=== PATIENT | male | born 1955 | race Caucasian/White ===

== ENCOUNTER → 2021-10-20 | Outpatient (CLI) | payer MEDICARE ==
[2021-10-20 09:35] LABS: Basophils # (A) 0.1 k/uL (0-0.2); Basophils % (A) 1 %; Eosinophils # (A) 0.2 k/uL (0-0.7); Eosinophils % (A) 3 %; HCT 42.6 % (39.0-53.0); HGB 14.7 gm/dL (13.0-17.5); Lymphocytes % (A) 30 %; MCHC 34.6 g/dL (31.0-37.0); MCV 101.3 fL (80.0-100.0); Macrocytosis Slight; Mean Platelet Volume 7.1; Monocytes # (A) 0.5 k/uL (0-1.0); Monocytes % (A) 7 %; Neutrophils # (A) 3.7 k/uL (1.3-7.7); Neutrophils % (A) 57 %; Platelet Count 188 k/uL (150-450); RBC 4.21 m/uL (4.30-5.90); RDW 13.5 % (11.5-15.5); WBC 6.4 k/uL (3.8-10.6)
[2021-10-20 09:45] LABS: ALT 26 U/L (4-49); African American GFR (CKD) 84 (>60 ml/min/1.73 sqM); Albumin 4.9 g/dL (3.5-5.0); Albumin/Globulin Ratio 1.4; Anion Gap 10 mmol/L; Blood Urea Nitrogen 16 mg/dL (9-20); Calcium 9.9 mg/dL (8.4-10.2); Carbon Dioxide 27 mmol/L (22-30); Chloride 102 mmol/L (98-107); Globulin 3.5 g/dL; Glucose 97 mg/dL (74-99); Non-African American GFR(CKD) 72 (>60 ml/min/1.73 sqM); Sodium 139 mmol/L (137-145); Total Bilirubin 1.1 mg/dL (0.2-1.3); Total Protein 8.4 g/dL (6.3-8.2)
[2021-10-20 09:47] LABS: AST 39 U/L (17-59); Alkaline Phosphatase 40 U/L (38-126); Potassium 5.2 mmol/L (3.5-5.1)
--- NOTE | 2021-10-20 13:35 | NM ---
EXAMINATION TYPE: NM bone scan whole body DATE OF EXAM: 10/20/2021 COMPARISON: NONE HISTORY: Prostate cancer Delayed whole-body scanning was performed following the injection of 24.1 mCi Tc 99m MDP. Images wer e acquired 3 hours post injection. FINDINGS: Suspicious focal uptake to suggest metastatic disease is not identified within the visualized axial o r appendicular skeleton. There is some mild diffuse uptake in the lower cervical spine which appears suggestive for degenerati ve change. IMPRESSION: 1. Mild uptake in the lower cervical spine appears more suggestive for degenerative change. 2. No suspicious uptake to suggest metastatic disease.
[2021-10-20 17:30] LABS: % Iron Saturation 32.82 (15.00-50.00); Chol/HDL Ratio 3.93 Ratio; Iron 142 ug/dL (65-175); LDL Cholesterol,Calculated 152.2 mg/dL (0.0-131.0); Total Iron Binding Capacity 433 ug/dL (228-460)
--- NOTE | 2021-10-23 08:54 | MR ---
EXAMINATION TYPE: MR pelvis wo/w con DATE OF EXAM: 10/20/2021 COMPARISON: Same day whole body bone scan. IMAGE QUALITY: Good. INDICATION: HX OF PROSTATE CA - PROSTATE WAS REMOVED - INCREASE IN PSA PSA: ng/ml TECHNIQUE: Examination was performed using a 3T MRI without an endorectal coil. Multiparametric imaging was perf ormed with T2 mutliplanar sequences, axial diffusion weighted imaging and dynamic contrast enhanced i maging, utilizing 10ML mL intravenous Gadavist gadolinium contrast. FINDINGS: Exam is suboptimal as patient motion artifact degradation is present. Prostate is surgically absent. Asymmetric 2.0 x 1.5 cm x 1.2 cm cystic structure left pelvis axial im age 29 and coronal image 12 could reflect portion of retained seminal vesicle. No additional suspicio us recurrent masses or adenopathy identified. Small fat-containing inguinal hernias bilaterally. Bladder poorly distended with mild wall thickening and trabeculation. No suspicious bowel dilatation. No concerning focal pelvic fluid collection. Visualized osseous structures show no definitive suspic ious focal osseous lesion. Abnormal lymph nodes: no Bone metastases in inferior pelvis: no IMPRESSION: Abnormal 2.0 cm structure left superior prostate bed has appearance of a portion of the r emnant seminal vesicle but recurrent localize neoplasm needs to be considered given history of rising PSA. Correlate clinically and with surgical operative note and with prior outside imaging if availab le. I'm told current PSA is 0.30 making local recurrent neoplasm almost certainly not present.
== END | disposition home or self-care (01) ==
LOC: RADMRIMAIN 08:40
PROVIDERS: ATTEND Radiology Radiation Oncology
DX: C61 Malignant neoplasm of prostate (principal)
CPT/HCPCS: 84439; 84153; 84481; 80053; 80061; 82607; 83540; 83550; 84443; 85025; 84403; 82306; 72197; 78306; 36415; A9503; A9585

== ENCOUNTER → 2022-08-21 | Outpatient (CLI) | payer MEDICARE ==
[2022-08-21 14:35] LABS: Basophils # (A) 0.05 X 10*3/uL (0.00-0.10); Basophils % (A) 1.2 %; Eosinophils # (A) 0.22 X 10*3/uL (0.04-0.35); Eosinophils % (A) 5.2 %; HCT 41.5 % (39.6-50.0); HGB 14.2 g/dL (13.0-17.0); Immature Grans, Automated 0.2 %; Lymphocytes # (A) 0.94 X 10*3/uL (0.90-5.00); Lymphocytes % (A) 22.1 %; MCH 34.4 pg (27.0-32.0); MCHC 34.2 g/dL (32.0-37.0); MCV 100.5 fL (80.0-97.0); Mean Platelet Volume 9.2 fL (9.5-12.2); Monocytes # (A) 0.48 X 10*3/uL (0.20-1.00); Monocytes % (A) 11.3 %; NRBC Per 100 WBC 0 /100 WBCS (0.0-0.0); Neutrophils # (A) 2.56 X 10*3/uL (1.80-7.70); Platelet Count 197 X 10*3/uL (140-440); RBC 4.13 X 10*6/uL (4.40-5.60); RDW 13.3 % (11.5-14.5); WBC 4.26 X 10*3/uL (4.50-10.00)
[2022-08-21 16:25] LABS: % Iron Saturation 28.92 (15.00-50.00); ALT 26 U/L (10-49); AST 21 U/L (14-35); African American GFR (CKD) 78.1 (60.0-200.0); Albumin 4.5 g/dL (3.8-4.9); Albumin/Globulin Ratio 1.81 (1.60-3.17); Alkaline Phosphatase 33 U/L (41-126); Blood Urea Nitrogen 13.1 mg/dL (9.0-27.0); Calcium 9.8 mg/dL (8.7-10.3); Carbon Dioxide 26.5 mmol/L (20.0-27.5); Chloride 99 mmol/L (96-109); Chol/HDL Ratio 3.87 Ratio; Globulin 2.5 g/dL (1.6-3.3); Glucose 89 mg/dL (70-110); Iron 115 ug/dL (65-175); LDL Cholesterol,Calculated 137.3 mg/dL (0.0-131.0); Non-African American GFR(CKD) 67.4 (60.0-200.0); Potassium 5.1 mmol/L (3.5-5.5); Sodium 137 mmol/L (135-145); Total Iron Binding Capacity 398 ug/dL (228-460)
[2022-08-21 16:48] LABS: Prostate Specific Antigen <0.01 ng/mL (0.00-4.50)
== END | disposition home or self-care (01) ==
LOC: LABWHC1 09:55
PROVIDERS: ATTEND Radiology Radiation Oncology
DX: C61 Malignant neoplasm of prostate (principal); E03.2 Hypothyroidism due to medicaments and other exogenous substances; E55.9 Vitamin D deficiency, unspecified; E78.2 Mixed hyperlipidemia; D63.0 Anemia in neoplastic disease; R53.82 Chronic fatigue, unspecified; E11.22 Type 2 diabetes mellitus with diabetic chronic kidney disease; N18.9 Chronic kidney disease, unspecified; M13.80 Other specified arthritis, unspecified site
CPT/HCPCS: 36415; 80053; 80061; 82306; 82607; 83540; 83550; 84153; 84403; 84439; 84443; 84481; 85025

== ENCOUNTER → 2023-03-19 | Outpatient (CLI) | payer MEDICARE | END | disposition home or self-care (01) | LOC: LABWHC1 10:42 | PROVIDERS: ATTEND Surgery | DX: C61 Malignant neoplasm of prostate (principal) | CPT/HCPCS: 36415; 84153 ==

== ENCOUNTER → 2023-08-12 | Outpatient (CLI) | payer MEDICARE | END | disposition home or self-care (01) | LOC: LABWHC1 13:10 | PROVIDERS: ATTEND Radiology Radiation Oncology | DX: Z53.9 Procedure and treatment not carried out, unspecified reason (principal) ==

== ENCOUNTER → 2023-08-13 | Outpatient (CLI) | payer MEDICARE ==
[2023-08-13 18:12] LABS: Basophils # (A) 0.06 X 10*3/uL (0.00-0.10); Basophils % (A) 1.2 %; HCT 38.8 % (39.6-50.0); HGB 12.9 g/dL (13.0-17.0); Lymphocytes # (A) 1.25 X 10*3/uL (0.90-5.00); MCH 33.9 pg (27.0-32.0); MCHC 33.2 g/dL (32.0-37.0); MCV 102.1 FL (80.0-97.0); Mean Platelet Volume 9.6 FL (9.5-12.2); Monocytes # (A) 0.48 X 10*3/uL (0.20-1.00); Monocytes % (A) 9.6 %; NRBC Per 100 WBC 0 X 10*3/uL (0.00-0.01); Neutrophils # (A) 2.99 X 10*3/uL (1.80-7.70); Neutrophils % (A) 59.8 %; Platelet Count 218 X 10*3/uL (140-440); RDW 13.1 % (11.5-14.5)
[2023-08-13 18:49] LABS: % Iron Saturation 36.34 (15.00-50.00); ALT 23 U/L (10-49); AST 20 U/L (14-35); Albumin 4.5 g/dL (3.8-4.9); Albumin/Globulin Ratio 1.73 Ratio (1.60-3.17); Alkaline Phosphatase 42 U/L (41-126); BUN/Creat Ratio 11.55 Ratio (12.00-20.00); Blood Urea Nitrogen 12.7 mg/dL (9.0-27.0); Carbon Dioxide 26.8 mmol/L (21.6-31.8); Chloride 102 mmol/L (96-109); Chol/HDL Ratio 2.33 Ratio; Globulin 2.6 g/dL (1.6-3.3); Glucose 96 mg/dL (70-110); Iron 121 UG/DL (65-175); Potassium 5.5 mmol/L (3.5-5.5); Sodium 138 mmol/L (135-145); T4, Free (Free Thyroxine) 1.26 ng/dL (0.80-1.80); Total Bilirubin 0.3 mg/dL (0.3-1.2); Total Iron Binding Capacity 333 UG/DL (228-460); Total Protein 7.1 g/dL (6.2-8.2); VLDL Calculation 17.38 mg/dL (5.00-40.00)
[2023-08-13 19:31] LABS: Prostate Specific Antigen <0.01 ng/mL (0.000-6.500)
== END | disposition home or self-care (01) ==
LOC: LABWHC1 09:30
PROVIDERS: ATTEND Radiology Radiation Oncology
DX: C61 Malignant neoplasm of prostate (principal); E11.22 Type 2 diabetes mellitus with diabetic chronic kidney disease; N18.9 Chronic kidney disease, unspecified; E03.2 Hypothyroidism due to medicaments and other exogenous substances; E55.9 Vitamin D deficiency, unspecified; E78.2 Mixed hyperlipidemia; M19.90 Unspecified osteoarthritis, unspecified site; D63.0 Anemia in neoplastic disease; R53.82 Chronic fatigue, unspecified
CPT/HCPCS: 36415; 80053; 80061; 82306; 82607; 83540; 83550; 84153; 84403; 84439; 84443; 84481; 85025

== ENCOUNTER → 2024-08-25 | Outpatient (CLI) | payer MEDICARE ==
[2024-08-25 14:53] LABS: Basophils # (A) 0.03 X 10*3/uL (0.00-0.10); Basophils % (A) 0.6 %; Eosinophils # (A) 0.16 X 10*3/uL (0.04-0.35); Eosinophils % (A) 3.2 %; HGB 13.1 g/dL (13.0-17.0); Lymphocytes # (A) 1.25 X 10*3/uL (0.90-5.00); Lymphocytes % (A) 25.3 %; MCH 33.8 pg (27.0-32.0); MCHC 33.6 g/dL (32.0-37.0); MCV 100.5 FL (80.0-97.0); Mean Platelet Volume 9.6 FL (9.5-12.2); Monocytes # (A) 0.47 X 10*3/uL (0.20-1.00); Monocytes % (A) 9.5 %; NRBC Per 100 WBC 0 X 10*3/uL (0.00-0.01); Neutrophils # (A) 3.01 X 10*3/uL (1.80-7.70); Platelet Count 204 X 10*3/uL (140-440); RBC 3.88 X 10*6/uL (4.40-5.60); RDW 12.9 % (11.5-14.5); WBC 4.94 X 10*3/uL (4.50-10.00)
[2024-08-25 15:35] LABS: % Iron Saturation 30.25 (15.00-50.00); ALT 27 U/L (10-49); AST 25 U/L (14-35); Albumin 4.7 g/dL (3.8-4.9); Albumin/Globulin Ratio 1.74 Ratio (1.60-3.17); Alkaline Phosphatase 37 U/L (41-126); BUN/Creat Ratio 12.38 Ratio (12.00-20.00); Blood Urea Nitrogen 16.1 mg/dL (9.0-27.0); Calcium 10.4 mg/dL (8.7-10.3); Carbon Dioxide 26.8 mmol/L (21.6-31.8); Chloride 99 mmol/L (96-109); Chol/HDL Ratio 2.61 Ratio; Globulin 2.7 g/dL (1.6-3.3); Glucose 96 mg/dL (70-110); Iron 108 UG/DL (65-175); LDL Cholesterol,Calculated 84.3 mg/dL (0.0-131.0); Potassium 4.9 mmol/L (3.5-5.5); Sodium 137 mmol/L (135-145); Total Bilirubin 0.6 mg/dL (0.3-1.2); Total Iron Binding Capacity 357 UG/DL (228-460); Total Protein 7.4 g/dL (6.2-8.2); VLDL Calculation 17.54 mg/dL (5.00-40.00)
[2024-08-25 15:50] LABS: Prostate Specific Antigen <0.01 ng/mL (0.000-6.500)
== END | disposition home or self-care (01) ==
LOC: LABWHC1 10:05
PROVIDERS: ATTEND Radiology Radiation Oncology
DX: C61 Malignant neoplasm of prostate (principal); E03.2 Hypothyroidism due to medicaments and other exogenous substances; E55.9 Vitamin D deficiency, unspecified; E78.2 Mixed hyperlipidemia; D63.0 Anemia in neoplastic disease; E11.22 Type 2 diabetes mellitus with diabetic chronic kidney disease; N18.9 Chronic kidney disease, unspecified; M19.90 Unspecified osteoarthritis, unspecified site; R53.82 Chronic fatigue, unspecified
CPT/HCPCS: 36415; 80053; 80061; 82306; 82607; 83540; 83550; 84153; 84403; 84439; 84443; 84481; 85025